=== PATIENT | male | born 1955 | race African-American/Black ===

== ENCOUNTER 2016-08-16 09:22 | Emergency (ER) | payer MEDICARE, MEDICAID ==
[2016-08-16 09:44] VITALS: BMI 30.4
[2016-08-16 09:45] VITALS: TEMP 98.8
[2016-08-16] MEDS ORDERED: Albuterol/Ipratropium Neb 3 ML NEB NEB ONE (10:15)
[2016-08-16] MEDS ORDERED: METHYLPREDNISOLONE 125 MG/2 ML VIAL IV ONE (10:18)
--- NOTE | 2016-08-16 10:23 | EDPRACDOC ---
- General Information Chief Complaint: Dyspnea/Resp distress Stated Complaint: COUGH/CHEST CONGESTION/SHOB Time Seen by Provider: 08/16/16 10:06 Information Source: Patient Home Medications: Home Medications Fluticasone/Salmeterol [Advair 250-50 Diskus] 1 puff INH BID 03/24/13 Pilocarpine HCl 5 mg PO BID 01/26/15 Albuterol Sulfate [Ventolin Hfa] 1 - 2 puff INH Q4H PRN 03/22/16 Amlodipine [Norvasc] 10 mg PO DAILY 03/22/16 Dicyclomine HCl [Bentyl] 20 mg PO TID PRN 03/22/16 Lisinopril [Zestril] 40 mg PO DAILY 03/22/16 Loratadine [Claritin] 10 mg PO DAILY 03/22/16 Oxycodone HCl [Oxycodone Immediate Release] 15 mg PO TID PRN 03/22/16 Pantoprazole Sodium [Protonix] 40 mg PO DAILY 03/22/16 Albuterol/Ipratropium Neb [Duoneb] 3 ml NEB Q6H PRN 06/13/16 Azithromycin 250 mg PO DAILY #6 tablet 08/16/16 Prednisone [Deltasone, Orasone] 40 mg PO DAILY 5 Days 08/16/16 Tussionex [Tussionex Oral Suspension] 5 ml PO BID PRN #90 ml 08/16/16 Allergies/Adverse Reactions: Allergies Allergy/AdvReac Type Severity Reaction Status Date / Time Penicillins Allergy Severe Edema-Oral/ Verified 08/16/16 09:44 Lip - History of Present Illness Onset: SEVERAL DAYS HPI: Pt with hx of COPD, asthma c/o non productive cough, nasal congestion and SOB x 3 days. Uses CPAP at home at night. Has rib pain from coughing, which is worse at night. Also c/o diarrhea and dec appetite. Denies fever, N/V, changes in urine. Med hx = borderline DM, ASTHMA, copd, hdl, Depression. + smoker Current Symptoms: Reports: Cough. Denies: Sore Throat Shortness of Breath: Mild Cough: Reports: Non-productive Rhinorrhea: Reports: Clear Ear Symptoms: Reports: None Fever Severity/Quality: Reports: no fever Oral Intake: Decreased Urinary Output: Normal Relevant History of: Asthma, COPD Associated Signs & Symptoms:: Reports: Cough, Nasal Symptoms, Diarrhea ED Past Medical History - History Reviewed Yes Nurses notes reviewed and agree except as marked - Patient Medical History Cardiac History: Reports: Hypertension, Hypercholesterolemia Respiratory History: Reports: Asthma, COPD, Pneumonia (08/2013), Emphysema GI/ History: Reports: Renal Disease (CRI), Gastroesophageal Reflux, Ulcer Musculoskeletal History: Reports: Arthritis Psychological History: Reports: Depression, Anxiety, Bipolar Disorder Systemic History: Reports: Diabetes (BORDERLINE). Denies: Cancer Surgical History: Reports: Cholecystectomy - Family Medical History Reports: Hypertension, Diabetes, Cancer, Stroke, Cardiac Disorders - Social Medical History Smoking Status: Former smoker EDM Review of Systems - Review of Systems ROS Negative Except as Marked: Yes All systems reviewed and were negative except as marked Nose: Congestion Respiratory: Cough, Shortness of Breath, Asthma Endocrine: Diabetes Psychiatric: Depression - Physical Exam Constitutional: No apparent distress, Alert Oriented to: Time, Person, Place Last recorded Vital Signs: Last Vital Signs Temp 98.8 F 08/16/16 09:52 Pulse 88 08/16/16 09:52 Resp 22 08/16/16 09:52 BP 161/90 08/16/16 09:52 Pulse Ox 95 08/16/16 09:52 Oxygen Pulse Oxygen Saturation 95 O2 Device Room Air Oxygen Flow Rate Fraction of Inspired Oxygen ( FIO2) - HEENT Head: Normal Eye Exam: negative: Conjunctival Injection, Scleral Icterus Oropharynx: negative: Drooling TMJ: Normal Nose: Congestion Neck: Normal - Respiratory/Cardiovascular Respiratory: Rhonchi (bilat, upper and lower) Cardiovascular: Normal - GI Tenderness: Non tender - Musculoskeletal Back: Normal Extremities: Normal - Integumentary Skin: Normal - Neurologic Mood Description: Normal Thought: Coherent - Results 08/16/16 10:00 08/16/16 10:00 - EKG EKG #1 EKG Time: 10:01 Rate: bpm: 75 Rhythm: NSR ST: Normal - Diagnostic Imaging Chest Image interpreted by: Radiologist EXAM: CHEST 2 VIEW COMPARISON: CT 03/17/2015 and plain film of 11/09/2014. FINDINGS: Midline trachea. Normal heart size and mediastinal contours. No pleural effusion or pneumothorax. Mild lower lobe predominant interstitial thickening with infrahilar volume loss bilaterally. No lobar consolidation. IMPRESSION: No acute cardiopulmonary disease. Electronically Signed By: Dano Booth M.D. On: 08/16/2016 10:47 - Additional Information Pt states he has neb tx at home, as well as inhalers. Will be sent home with spacer to help improve efficacy of inhaler. Decision Time to Discharge: 11:49 - Departure Disposition: Home Condition: Stable Final Diagnosis: Bronchitis, Acute bronchitis, COPD with acute lower respiratory infection Instructions: COPD (Chronic Obstructive Pulmonary Disease) (ED) Education/Counseling Given To: Patient Education/Counseling Given Regarding: Diagnosis, Treatment, Prognosis, Follow Up Referrals: None,No Provider [Primary Care Provider] - One Week Veronica Montana MD [Staff Physician] - One Week Prescriptions: Azithromycin 250 mg PO DAILY #6 tablet Prednisone [Deltasone, Orasone] 40 mg PO DAILY 5 Days Tussionex [Tussionex Oral Suspension] 5 ml PO BID PRN #90 ml PRN Reason: Cough Forms: Excuse Note Additional Instructions: Follow up with primary care regarding respiratory infection and elevated blood pressure. Return to ED for any new or worsening symptoms.
[2016-08-16 10:27] LABS: AUTOMATED BASOPHIL 1.5 % (0-2); AUTOMATED EOSINOPHIL 1.5 % (0-5); AUTOMATED LYMPH 24.4 % (17-44); AUTOMATED MONOCYTE 16.1 % (3-10); AUTOMATED NEUTROPHIL 56.5 % (45-76); MPV 7.9 fL (7.4-10.4)
[2016-08-16 10:36] LABS: BLOOD UREA NITROGEN 11 MG/DL (9-20); CALCIUM 9.4 MG/DL (8.4-10.2); CALCULATED OSMOLALITY 270 MOs/Kg (270-290); CHLORIDE 106 mEq/L (98-107); GLUCOSE 107 MG/DL (70-99); SODIUM LEVEL 141 mEq/L (137-146); TOTAL PROTEIN 7.3 G/DL (6.3-8.2)
--- NOTE | 2016-08-16 10:50 | DIRPT ---
CLINICAL DATA: Shortness of breath. History of COPD/asthma. EXAM: CHEST 2 VIEW COMPARISON: CT 03/17/2015 and plain film of 11/09/2014. FINDINGS: Midline trachea. Normal heart size and mediastinal contours. No pleural effusion or pneumothorax. Mild lower lobe predominant interstitial thickening with infrahilar volume loss bilaterally. No lobar consolidation. IMPRESSION: No acute cardiopulmonary disease. Electronically Signed By: Dano Booth M.D. On: 08/16/2016 10:47
[2016-08-16 10:56] LABS: LEUKOCYTES/URINE NEG (NEGATIVE); NITRITE/URINE NEG (NEGATIVE); RBC/URINE 0-2 (0-2); URINE OCCULT BLOOD NEG (NEG/TRACE); WBC/URINE 0-2 (0-2)
[2016-08-16] MEDS ORDERED: ALBUTEROL 6.7 GM MDI INH ONE (11:26)
[2016-08-16 11:57] VITALS: BP 163/100; PULSE 79
== END 2016-08-16 12:05 | disposition home or self-care (01) ==
LOC: ED 09:22
DX: J44.0 Chronic obstructive pulmonary disease with (acute) lower respiratory infection (principal); J20.9 Acute bronchitis, unspecified
CPT/HCPCS: 36415; 71020; 80053; 81001; 85025; 93005; 94640; 96374; 99284; A9270; J2930; J7620; J3490